=== PATIENT | female | born 1990 | race Caucasian/White ===

== ENCOUNTER 2018-07-27 08:15 | Outpatient (RCR) | payer MEDICARE, MEDICAID, SELFPAY ==
--- NOTE | 2018-06-18 16:41 | PT.OIE ---
Current Diagnoses Pain in right ankle and joints of right foot (06/18/18) Radiculopathy, lumbosacral region (06/18/18) Muscle weakness (generalized) (06/18/18) Unspecified subluxation of left patella, initial encounter (06/18/18) Other reduced mobility (06/18/18) Past Medical History (Last Reviewed 05/04/18 @ 10:34 by Jennifer Bradley LPN) Anxiety (Chronic ~1992) Depression (Chronic ~2008) Headache (Chronic) OCD (obsessive compulsive disorder) (Chronic ~1992) Seizure (Chronic) Vertigo (Chronic ~2006) Past Surgical History (Last Reviewed 05/04/18 @ 10:34 by Jennifer Bradley LPN) Anesthesia (Resolved) History of hand surgery (Resolved) History of lithotripsy Status post cholecystectomy Status post knee surgery Provider Visit Care Team Role Provider Type Joo Guthrie MD Attending Provider Physician Family Provider Primary Care Provider Specialty: Family Practice Address: [address] [place] [address] Email: [email or web address] Physical Therapy Initial Evaluation PT-OP-A Visit Information Start: 06/17/18 09:41 Freq: Status: Active Protocol: Document 06/18/18 09:04 LRN (Rec: 06/18/18 09:54 MARLONN [id number]) Out-Patient Physical Therapy Visit Information Visit Information Visit Type Initial Evaluation Visit Start Time 09:04 Visit Stop Time 09:56 Total Visit Minutes 52 Visit Number 1 Number of INSTRUMENTATION CONTROLS ENGINEER Visits 0 Evaluation Information Evaluation Date 06/18/18 PT-OP-B Current Condition Start: 06/17/18 09:41 Freq: Status: Active Protocol: Document 06/18/18 09:04 LRN (Rec: 06/18/18 09:54 LRN [id number]) Current Condition History of Current Condition Onset Date August 2017 Current Complaints Pain in superolateral L patella and pain in the L thigh with activity. History of Current Condition R ankle pain since down stairs and standing up on inverted ankle at age 18. Now, insidious onset of intermittent L knee pain that is also leads to L lateral thigh pain. Her pain is random with onset of sitting > 1 hour, sometimes walking she feels like her leg might give out. She states sometimes her L lateral thigh aches and touching it makes it hurt worse. Prior Treatments and Tests Prior treatments given to the R knee for similar condition of 2 surgeries with the last being a partial tendon release . Treatment Goals Patient/Caregiver Goals Pt goal is to be able to walk and stand without pain; walk and stand without fear of the L leg giving and causing her to fall. 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 Current Functional Impairments (Reported) Functional Limitations- ADL's Fear of L LE giving out with descending stairs. Functional Limitations- Mobility/Gait Running is difficult for fear the knees may give out. Functional Limitations- Work/School Pain in L thigh/knee randomly. Functional Limitations- Recreation/ Can't hike. Hobbies Personal Factors Other Personal Factors That May Effect Chronicity of condition. Therapy/Recovery Depression with 1 suicide attempt. Tourettes. Anxiety Disorder. Stress Seizure disorder. Obsessive Compulsive Disorder. Pt reported PTSD PT-OP-C Subjective Start: 06/17/18 09:41 Freq: Status: Active Protocol: Document 06/18/18 09:04 LRN (Rec: 06/18/18 15:56 LR [id number]) Patient Questionnaires Lower Extremity Functional Scale LEFS Score 62 LEFS Impairment 20 to 39% Impaired (Score 48- 62) OP-PT Pain Assessment Pain Assessment Grid Paper Pain Assessment Grid Completed Yes Location Left Lateral Thigh Intensity 5 Description Aching Description- Other Intolerable to touch Frequency Intermittent Pain Aggravating Factors Activity Other Pain Aggravating Factors Touch L lateral ankle Intensity 3 Scale Used Numeric (1 - 10) Description Aching Frequency Intermittent Pain Aggravating Factors Activity Other Pain Aggravating Factors Touch Patient Stated Pain Goal Activity without pain Pain Behaviors Pain Behaviors Facial Grimacing PT-OP-F Manual Assessment Start: 06/17/18 09:41 Freq: Status: Active Protocol: Document 06/18/18 09:04 LRN (Rec: 06/18/18 15:56 [email or web address] [id number]) Manual Assessments Soft Tissue Assessment Soft Tissue Mobility Assessment L hip and thigh: No significant soft tissue or muscle tightness as compared to the right. Increased Soft tissue tightness of the R lumbar paraspinals. Tenderness of T12 through L1 Transverse Processes. Joint Mobility Assessment Joint Mobility Assessment Sacrum: L ALA & R DINO is stuck in flexion. PT-OP-G Mobility & Gait Start: 06/17/18 09:41 Freq: Status: Active Protocol: Document 06/18/18 09:04 LRN (Rec: 06/18/18 15:56 LRN [id number]) OP Gait Assessment Gait Deviations General Gait Pattern Antalgic Comments Gait Comments Hits heavy with L LE. PT-OP-J Posture/Palpation/Skin Start: 06/17/18 09:41 Freq: Status: Active Protocol: Document 06/18/18 09:04 LRN (Rec: 06/18/18 15:56 LRN [id number]) Posture Evaluation Position Standing L-Spine Posture Rotation Right Increased Lordosis Pelvis Posture (R) PSIS Posterior Weight Distribution Weight Shifted Left Hip Posture (R) Externally Rotated Knee Posture (R) Genu Valgus Foot Arch (L) Low Arch (R) No Arch Comments Posture Comments Pt stands weight shifted on left. Pain in R side increases with equal weight bearing. Palpation Assessment Location Lumbar region Palpation Location L 3 Palpation Findings Tenderness PT-OP-K Range of Motion Start: 06/17/18 09:41 Freq: Status: Active Protocol: Document 06/18/18 09:04 LRN (Rec: 06/18/18 15:56 LRN [id number]) Lumbar Spine Range of Motion Lumbar Spine Active Degrees Flexion 60 Extension 20 Lateral Flexion Left 10 Lateral Flexion Right 20 ROM Limitations Pain Comments Trunk: Flex is with 35 deg's hip flexion. Ext is with 5 deg's hip extension. Pivot point is L5, Tender at L3. Ankle and Foot Goniometric Range of Motion Ankle and Foot Measured in Degrees Right Active Dorsiflexion with Knee Extended 0 Left Active Dorsiflexion with Knee Extended 0 PT-OP-L Special Tests Start: 06/17/18 09:41 Freq: Status: Active Protocol: Document 06/18/18 09:04 LRN (Rec: 06/18/18 15:56 LRN [id number]) Special Tests Lumbar Spine Special Tests Straight Leg Raise Test Results + bilaterally. Comments 50 deg's left, 60 deg's right. PT-OP-M Strength Start: 06/17/18 09:41 Freq: Status: Active Protocol: Document 06/18/18 09:04 LRN (Rec: 11/09/18 15:56 LRN [id number]) Trunk Strength Trunk Manual Muscle Testing Testing Position Supine Core Stabilization Poor. Pt unable to remain in neutral spine with leg lifts. PT-OP-Q Treatments Start: 06/17/18 09:41 Freq: Status: Active Protocol: Document 06/18/18 09:04 LRN (Rec: 06/18/18 15:56 LRN [id number]) Therapeutic Exercises Supine Exercises Hamstring/LE neural stretch Side left Gastrocnemius stretch Supine Exercise Name Passive stretch Side bilateral Manual Therapy Treatment Manual Traction Lumbar Details Traction with belt and pt self traction. Body Position Hooklying Self-Care/Home Management Treatment Education Patient Education Home Exercise Program Activities Self-Care/Home Management Activities Issued and reviewed HEP: Gastrocnemius and Soleus stretch; Hamstring/LE neural stretch. PT-OP-T Assessment and Plan Start: 06/17/18 09:41 Freq: Status: Active Protocol: Document 06/18/18 09:04 LRN (Rec: 06/18/18 09:54 LRN [id number]) Physical Therapy Assessment Rehab Potential Rehabilitation Potential Good Evaluation Complexity Number of Personal Factors/Comorbidities 3 or More Number of Body Systems Impaired 4 or More Clinical Presentation at Evaluation Evolving Impairments Impairments Activity Tolerance Gait Pain Posture ROM Soft Tissue Mobility Other Concerns Age Related Concerns Age: Effect of dysfunction on home/family/job. Barriers to Rehabilitation Co-morbidities. 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 Chonicity of condition. Goals Four Impairment Poor posture Short Term Goal (STG) Pt will be able to demonstrate proper sitting/standing posture with cuing. STG Duration 06/25/19. Three Impairment + PSLR with LBP Aerial Gunner Goal (LTG) Pt will be able to stand without onset of L or R lateral thigh or knee pain. Two Impairment Intermittent sudden onset of L knee/thigh pain. Aerial Gunner Goal (LTG) Pt will be able to walk without onset of pain LTG Duration 08/09/18. One Impairment Lacks appropriate self care HEP Correction Goal (LTG) Pt will be independent with a self care program to manage her pain and condition. LTG Duration 08/09/18. Assessment Summary Assessment Pt presents with + PSLR bilaterally, indicating possible neurological involvement. She appears to have LE radicular pain with repetitive trunk ROM and onset with L trunk SB. She gets resolution of her pain in supine with manual lumbar traction. She has soft tissue dysfunction in the lumbar, sacral and pelvic region and mechanical dysfunction of the sacrum (stuck in flexion at the L ALA and R DINO) and of the lumbar spine at L3 & L5. X-ray imaging of the lumbar region might be helpful to identify mechanical changes causing radicular pain. The pt demonstrates postural changes and poor posturing in sitting an standing. The pt will benefit from skilled physical therapy to improve her postural awareness, provide body mechanics training, teach proper back care with posturing and a HEP, and to improve her core/ pelvic stability and LE strength to prevent knee buckling and the pt's fear of falling. Physical Therapy Plan Frequency and Duration Frequency of Treatment 2x/Week Plan of Care Start Date 06/18/18 Plan of Care End Date 08/09/18 Therapeutic Interventions Therapeutic Interventions Gait Training Home Exercise Program Joint Mobilizations Manual Therapy Neuromuscular Re-education Patient/Caregiver Education Self-Care/Home Management Soft Tissue Mobilization Taping Therapeutic Activities Therapeutic Exercises Modalities Cold Pack/Ice Massage Electric Stimulation Hot Packs Traction- Mechanical Ultrasound Other Referrals/Consults Referrals/Consults Recommended Recommend X-rays and/or MRI of lumbar spine. Next Visit Focus/Plan Next Note Type Treatment Note Next Visit Plan Start with exercise for core stabilization during LE exercise, assess hip mobility, review HEP, add manual therapy to normalize lumbar and sacral positioning and manual lumbar traction (to start) to decrease pain, body mechanics training and progression of a Dynamic Lumbar Stabilization (DLS) program.
--- NOTE | 2018-06-18 16:42 | PT.OPPOC ---
Current Diagnoses Pain in right ankle and joints of right foot (06/18/18) Radiculopathy, lumbosacral region (06/18/18) Muscle weakness (generalized) (06/18/18) Unspecified subluxation of left patella, initial encounter (06/18/18) Other reduced mobility (06/18/18) Provider Visit Care Team Role Provider Type Joo Guthrie MD Attending Provider Physician Family Provider Primary Care Provider Specialty: Family Practice Address: [address] [place] [id number] Email: [email or web address] Plan Of Care PT-OP-T Assessment and Plan Start: 06/17/18 09:41 Freq: Status: Active Protocol: Document 06/18/18 09:04 LRN (Rec: 06/18/18 09:54 LRN [id number]) Physical Therapy Assessment Rehab Potential Rehabilitation Potential Good Evaluation Complexity Number of Personal Factors/Comorbidities 3 or More Number of Body Systems Impaired 4 or More Clinical Presentation at Evaluation Evolving Impairments Impairments Activity Tolerance Gait Pain Posture ROM Soft Tissue Mobility Other Concerns Age Related Concerns Age: Effect of dysfunction on home/family/job. Barriers to Rehabilitation Co-morbidities. 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 Chonicity of condition. Goals Four Impairment Poor posture Short Term Goal (STG) Pt will be able to demonstrate proper sitting/standing posture with cuing. STG Duration 06/25/19. Three Impairment + PSLR with LBP Group Home Goal (LTG) Pt will be able to stand without onset of L or R lateral thigh or knee pain. Two Impairment Intermittent sudden onset of L knee/thigh pain. Group Home Goal (LTG) Pt will be able to walk without onset of pain LTG Duration 08/09/18. One Impairment Lacks appropriate self care HEP Group Home Goal (LTG) Pt will be independent with a self care program to manage her pain and condition. LTG Duration 08/09/18. Assessment Summary Assessment Pt presents with + PSLR bilaterally, indicating possible neurological involvement. She appears to have LE radicular pain with repetitive trunk ROM and onset with L trunk SB. She gets resolution of her pain in supine with manual lumbar traction. She has soft tissue dysfunction in the lumbar, sacral and pelvic region and mechanical dysfunction of the sacrum (stuck in flexion at the L ALA and R DINO) and of the lumbar spine at L3 & L5. X-ray imaging of the lumbar region might be helpful to identify mechanical changes causing radicular pain. The pt demonstrates postural changes and poor posturing in sitting an standing. The pt will benefit from skilled physical therapy to improve her postural awareness, provide body mechanics training, teach proper back care with posturing and a HEP, and to improve her core/ pelvic stability and LE strength to prevent knee buckling and the pt's fear of falling. Physical Therapy Plan Frequency and Duration Frequency of Treatment 2x/Week Plan of Care Start Date 06/18/18 Plan of Care End Date 08/09/18 Therapeutic Interventions Therapeutic Interventions Gait Training Home Exercise Program Joint Mobilizations Manual Therapy Neuromuscular Re-education Patient/Caregiver Education Self-Care/Home Management Soft Tissue Mobilization Taping Therapeutic Activities Therapeutic Exercises Modalities Cold Pack/Ice Massage Electric Stimulation Hot Packs Traction- Mechanical Ultrasound Other Referrals/Consults Referrals/Consults Recommended Recommend X-rays and/or MRI of lumbar spine. Next Visit Focus/Plan Next Note Type Treatment Note Next Visit Plan Start with exercise for core stabilization during LE exercise, assess hip mobility, review HEP, add manual therapy to normalize lumbar and sacral positioning and manual lumbar traction (to start) to decrease pain, body mechanics training and progression of a Dynamic Lumbar Stabilization (DLS) program. Plan of Care Dates Plan of Care Start Date 06/18/18 Plan of Care End Date 08/09/18 Please Sign and Return: I have reviewed this Plan of Care and certify that the skilled therapy services above are required to meet the patient?s needs. Physician Signature Date Printed Name and Credentials Clinical Instructor Signature Printed Name and Credentials
--- NOTE | 2018-06-25 12:15 | PT.OTN ---
Current Diagnoses Pain in right ankle and joints of right foot (06/25/18) Unspecified subluxation of left patella, initial encounter (06/25/18) Physical Therapy Treatment Note PT-OP-A Visit Information Start: 06/17/18 09:41 Freq: Status: Active Protocol: Document 06/25/18 08:17 LRN (Rec: 06/25/18 09:03 LRN [id number]) Out-Patient Physical Therapy Visit Information Visit Information Visit Type Treatment Note Visit Start Time 08:17 Visit Stop Time 09:07 Total Visit Minutes 50 Visit Number 2 Number of HARBORMASTER Visits 0 Evaluation Information Evaluation Date 06/18/18 PT-OP-B Current Condition Start: 06/17/18 09:41 Freq: Status: Active Protocol: Document 06/18/18 09:04 LRN (Rec: 06/18/18 09:54 LRN [id number]) Current Condition History of Current Condition Onset Date August 2017 Current Complaints Pain in superolateral L patella and pain in the L thigh with activity. History of Current Condition R ankle pain since down stairs and standing up on inverted ankle at age 18. Now, insidious onset of intermittent L knee pain that is also leads to L lateral thigh pain. Her pain is random with onset of sitting > 1 hour, sometimes walking she feels like her leg might give out. She states sometimes her L lateral thigh aches and touching it makes it hurt worse. Prior Treatments and Tests Prior treatments given to the R knee for similar condition of 2 surgeries with the last being a partial tendon release . Treatment Goals Patient/Caregiver Goals Pt goal is to be able to walk and stand without pain; walk and stand without fear of the L leg giving and causing her to fall. 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 Current Functional Impairments (Reported) Functional Limitations- ADL's Fear of L LE giving out with descending stairs. Functional Limitations- Mobility/Gait Running is difficult for fear the knees may give out. Functional Limitations- Work/School Pain in L thigh/knee randomly. Functional Limitations- Recreation/ Can't hike. Hobbies Personal Factors Other Personal Factors That May Effect Chronicity of condition. Therapy/Recovery Depression with 1 suicide attempt. Tourettes. Anxiety Disorder. Stress Seizure disorder. Obsessive Compulsive Disorder. Pt reported PTSD PT-OP-C Subjective Start: 06/17/18 09:41 Freq: Status: Active Protocol: Document 06/25/18 08:17 LRN (Rec: 06/25/18 09:03 LRN [id number]) OP-PT Subjective Patient Comments Patient Comments R ankle hurts only if standing on it too long for 4-5 hours, and if turning and pivoting. Doing ex issued. PT-OP-F Manual Assessment Start: 06/17/18 09:41 Freq: Status: Active Protocol: Document 06/18/18 09:04 LRN (Rec: 06/18/18 15:56 LRN [id number]) Manual Assessments Soft Tissue Assessment Soft Tissue Mobility Assessment L hip and thigh: No significant soft tissue or muscle tightness as compared to the right. Increased Soft tissue tightness of the R lumbar paraspinals. Tenderness of T12 through L1 Transverse Processes. Joint Mobility Assessment Joint Mobility Assessment Sacrum: L ALA & R DINO is stuck in flexion. PT-OP-G Mobility & Gait Start: 06/17/18 09:41 Freq: Status: Active Protocol: Document 06/18/18 09:04 LRN (Rec: 06/18/18 15:56 LRN [id number]) OP Gait Assessment Gait Deviations General Gait Pattern Antalgic Comments Gait Comments Hits heavy with L LE. PT-OP-J Posture/Palpation/Skin Start: 06/17/18 09:41 Freq: Status: Active Protocol: Document 06/18/18 09:04 LRN (Rec: 06/18/18 15:56 LRN [id number]) Posture Evaluation Position Standing L-Spine Posture Rotation Right Increased Lordosis Pelvis Posture (R) PSIS Posterior Weight Distribution Weight Shifted Left Hip Posture (R) Externally Rotated Knee Posture (R) Genu Valgus Foot Arch (L) Low Arch (R) No Arch Comments Posture Comments Pt stands weight shifted on left. Pain in R side increases with equal weight bearing. Palpation Assessment Location Lumbar region Palpation Location L 3 Palpation Findings Tenderness PT-OP-K Range of Motion Start: 06/17/18 09:41 Freq: Status: Active Protocol: Document 06/18/18 09:04 LRN (Rec: 06/18/18 15:56 LRN [id number]) Lumbar Spine Range of Motion Lumbar Spine Active Degrees Flexion 60 Extension 20 Lateral Flexion Left 10 Lateral Flexion Right 20 ROM Limitations Pain Comments Trunk: Flex is with 35 deg's hip flexion. Ext is with 5 deg's hip extension. Pivot point is L5, Tender at L3. Ankle and Foot Goniometric Range of Motion Ankle and Foot Measured in Degrees Right Active Dorsiflexion with Knee Extended 0 Left Active Dorsiflexion with Knee Extended 0 PT-OP-L Special Tests Start: 06/17/18 09:41 Freq: Status: Active Protocol: Document 06/18/18 09:04 LRN (Rec: 06/18/18 15:56 LRN [id number]) Special Tests Lumbar Spine Special Tests Straight Leg Raise Test Results + bilaterally. Comments 50 deg's left, 60 deg's right. PT-OP-M Strength Start: 06/17/18 09:41 Freq: Status: Active Protocol: Document 06/25/18 08:17 LRN (Rec: 06/25/18 12:11 LRN [id number]) Ankle/Foot Strength Ankle and Foot Manual Muscle Testing Right Reason Not Measured WFL Comments Generally 5/5. PT-OP-Q Treatments Start: 06/17/18 09:41 Freq: Status: Active Protocol: Document 06/25/18 08:17 LRN (Rec: 06/25/18 09:03 LRN [id number]) Therapeutic Exercises Supine Exercises DLS Supine Exercise Name Neutral spine training & with Heels slides - singular Side bilateral Reps/Minutes 5' Hamstring/LE neural stretch Side bilateral Reps/Minutes 5' Comments L>R Gastrocnemius stretch Supine Exercise Name Passive stretch Side bilateral Reps/Minutes 3' Prone Exercises MAYURI Reps/Minutes 10x Sitting Exercises Ankle EV s Sitting Exercise Name Strengthening with T-Band Side right Equipment Used Lev 2 Reps/Minutes 10x2, 8x1 Comments Sore with last reps Manual Therapy Treatment Joint Mobilizations Thoracic Joint T4-T10 Direction Rotation Grade II Body Position Prone Reps/Duration 8' Sacrum Joint Moving into sacral extension & L rotation Grade III Body Position Prone Reps/Duration 4' Manual Traction Lumbar Details Traction with belt and pt self traction. Body Position Hooklying Self-Care/Home Management Treatment Education Patient Education Home Exercise Program Activities Self-Care/Home Management Activities Issued & reviewed HEP: Ankle EV with T-Band. I/S pt in MAYURI ex for HEP. PT-OP-R Modalities Start: 06/17/18 09:41 Freq: Status: Active Protocol: Document 06/25/18 08:17 LRN (Rec: 06/25/18 10:17 LRN [id number]) Hot Pack/Cold Pack Treatment Cold Pack Location Mid > Low back Patient Position Hooklying Treatment Duration (minutes) 10 Patient Tolerance Good PT-OP-T Assessment and Plan Start: 06/17/18 09:41 Freq: Status: Active Protocol: Document 06/25/18 08:17 LRN (Rec: 06/25/18 09:03 LRN [id number]) Physical Therapy Assessment Assessment Summary Assessment Pt was not having bilateral radicular pain this morning. Postural changes and core weakness are notable. She has soft tissue dysfunction in the lumbar, sacral and pelvic region and mechanical dysfunction of the sacrum ( stuck in flexion at the L ALA and R DINO) and of the lumbar spine at L3 & L5. The pt needs to improve her postural awareness, and needs body mechanics training, teaching of proper back care, HEP, and LE strength to prevent knee buckling and the pt's fear of falling. The R ankle is decreased in active EV/IV ~25% in sitting. Physical Therapy Plan Frequency and Duration Frequency of Treatment 2x/Week Plan of Care Start Date 06/18/18 Plan of Care End Date 08/09/18 Next Visit Focus/Plan Next Note Type Treatment Note Next Visit Plan Start with exercise for core stabilization during LE exercise, assess hip mobility, review HEP, add manual therapy to normalize lumbar and sacral positioning and manual lumbar traction (to start) to decrease pain, body mechanics training and progression of a Dynamic Lumbar Stabilization (DLS) program. Measure ankle IV/EV ROM and issue HEP of stretch ROM as needed.
--- NOTE | 2018-06-28 09:58 | PT.OTN ---
Current Diagnoses Pain in right ankle and joints of right foot (06/28/18) Unspecified subluxation of left patella, initial encounter (06/28/18) Physical Therapy Treatment Note PT-OP-A Visit Information Start: 06/17/18 09:41 Freq: Status: Active Protocol: Document 06/28/18 09:05 LRN (Rec: 06/28/18 09:55 LRN [id number]) Out-Patient Physical Therapy Visit Information Visit Information Visit Type Treatment Note Visit Start Time 09:05 Visit Stop Time 09:52 Total Visit Minutes 47 Visit Number 3 Number of CANDLEMAKING LABORER Visits 0 Evaluation Information Evaluation Date 06/18/18 PT-OP-B Current Condition Start: 06/17/18 09:41 Freq: Status: Active Protocol: Document 06/18/18 09:04 LRN (Rec: 06/18/18 09:54 LRN [id number]) Current Condition History of Current Condition Onset Date August 2017 Current Complaints Pain in superolateral L patella and pain in the L thigh with activity. History of Current Condition R ankle pain since down stairs and standing up on inverted ankle at age 18. Now, insidious onset of intermittent L knee pain that is also leads to L lateral thigh pain. Her pain is random with onset of sitting > 1 hour, sometimes walking she feels like her leg might give out. She states sometimes her L lateral thigh aches and touching it makes it hurt worse. Prior Treatments and Tests Prior treatments given to the R knee for similar condition of 2 surgeries with the last being a partial tendon release . Treatment Goals Patient/Caregiver Goals Pt goal is to be able to walk and stand without pain; walk and stand without fear of the L leg giving and causing her to fall. 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 Current Functional Impairments (Reported) Functional Limitations- ADL's Fear of L LE giving out with descending stairs. Functional Limitations- Mobility/Gait Running is difficult for fear the knees may give out. Functional Limitations- Work/School Pain in L thigh/knee randomly. Functional Limitations- Recreation/ Can't hike. Hobbies Personal Factors Other Personal Factors That May Effect Chronicity of condition. Therapy/Recovery Depression with 1 suicide attempt. Tourettes. Anxiety Disorder. Stress Seizure disorder. Obsessive Compulsive Disorder. Pt reported PTSD PT-OP-C Subjective Start: 06/17/18 09:41 Freq: Status: Active Protocol: Document 06/28/18 09:05 LRN (Rec: 06/28/18 09:55 LRN [id number]) OP-PT Subjective Patient Comments Patient Comments R knee hurt a lot on the lateral side. PT-OP-F Manual Assessment Start: 06/17/18 09:41 Freq: Status: Active Protocol: Document 06/18/18 09:04 LRN (Rec: 06/18/18 15:56 LRN [id number]) Manual Assessments Soft Tissue Assessment Soft Tissue Mobility Assessment L hip and thigh: No significant soft tissue or muscle tightness as compared to the right. Increased Soft tissue tightness of the R lumbar paraspinals. Tenderness of T12 through L1 Transverse Processes. Joint Mobility Assessment Joint Mobility Assessment Sacrum: L ALA & R DINO is stuck in flexion. PT-OP-G Mobility & Gait Start: 06/17/18 09:41 Freq: Status: Active Protocol: Document 06/18/18 09:04 LRN (Rec: 06/18/18 15:56 LRN [id number]) OP Gait Assessment Gait Deviations General Gait Pattern Antalgic Comments Gait Comments Hits heavy with L LE. PT-OP-J Posture/Palpation/Skin Start: 06/17/18 09:41 Freq: Status: Active Protocol: Document 06/18/18 09:04 LRN (Rec: 06/18/18 15:56 LRN [id number]) Posture Evaluation Position Standing L-Spine Posture Rotation Right Increased Lordosis Pelvis Posture (R) PSIS Posterior Weight Distribution Weight Shifted Left Hip Posture (R) Externally Rotated Knee Posture (R) Genu Valgus Foot Arch (L) Low Arch (R) No Arch Comments Posture Comments Pt stands weight shifted on left. Pain in R side increases with equal weight bearing. Palpation Assessment Location Lumbar region Palpation Location L 3 Palpation Findings Tenderness PT-OP-K Range of Motion Start: 06/17/18 09:41 Freq: Status: Active Protocol: Document 06/28/18 09:56 LRN (Rec: 06/28/18 09:58 LRN [id number]) Hip Goniometric Range of Motion Hip ROM Limitations Comments PSLR: L 35 deg's, R 45 ( measure with goniometer). Ankle and Foot Goniometric Range of Motion Ankle and Foot Measured in Degrees Right Active Inversion 18 Eversion 18 Left Active Inversion 25 Eversion 18 PT-OP-L Special Tests Start: 06/17/18 09:41 Freq: Status: Active Protocol: Document 06/18/18 09:04 LRN (Rec: 06/18/18 15:56 LRN [id number]) Special Tests Lumbar Spine Special Tests Straight Leg Raise Test Results + bilaterally. Comments 50 deg's left, 60 deg's right. PT-OP-M Strength Start: 06/17/18 09:41 Freq: Status: Active Protocol: Document 06/25/18 08:17 LRN (Rec: 06/25/18 12:11 LRN [id number]) Ankle/Foot Strength Ankle and Foot Manual Muscle Testing Right Reason Not Measured WFL Comments Generally 5/5. PT-OP-Q Treatments Start: 06/17/18 09:41 Freq: Status: Active Protocol: Document 06/28/18 09:05 LRN (Rec: 06/28/18 09:55 LRN [id number]) Cardio Equipment Bicycle (Upright) Duration (Minutes) 5 Resistance 3 Seat Position 3 Therapeutic Exercises Supine Exercises ROM Ankle Supine Exercise Name Ankle IV/EV Comments ROM taken DLS Supine Exercise Name Neutral spine training & with Heels slides - singular Side bilateral Reps/Minutes 5' Hamstring/LE neural stretch Side bilateral Reps/Minutes 5' Comments L>R. PSLR Self-Care/Home Management Treatment Education Patient Education Home Exercise Program Other Education Reviewed HEP and added pt to start postural training with use of wall. PT-OP-R Modalities Start: 06/17/18 09:41 Freq: Status: Active Protocol: Document 06/28/18 09:05 LRN (Rec: 06/28/18 09:55 LRN [id number]) Ultrasound Therapy Treatment R Lateral knee jt Treatment Duration (minutes) 8 Patient Position Supine Coupling Medium Ultrasound Gel Applicator Size (cm2) 2 Frequency Setting (mHz) 1 Mode Setting Continuous Intensity Setting (w/cm2) 1.0 PT-OP-T Assessment and Plan Start: 06/17/18 09:41 Freq: Status: Active Protocol: Document 06/28/18 09:05 LRN (Rec: 06/28/18 09:55 LRN [id number]) Physical Therapy Assessment Assessment Summary Assessment Pt not doing LE neural stretch correctly to start. Pt appears to have a fair understanding of proper standing posture, further training needed. Pt R lateral knee pain is partially LB related and possibly LCL inflammation related. Physical Therapy Plan Frequency and Duration Frequency of Treatment 2x/Week Plan of Care Start Date 06/18/18 Plan of Care End Date 08/09/18 Next Visit Focus/Plan Next Note Type Treatment Note Next Visit Plan Continue with posture training & exercise for core stabilization during LE exercise, assess hip mobility, review HEP, add manual therapy to normalize lumbar/ sacral posture, manual lumbar traction (to start) to decrease pain, body mechanics training and progression of a Dynamic Lumbar Stabilization (DLS) program. Measure ankle IV/EV ROM and issue HEP of stretch ROM as needed.
--- NOTE | 2018-07-05 15:41 | PT.OTN ---
Current Diagnoses Pain in right ankle and joints of right foot (07/05/18) Unspecified subluxation of left patella, initial encounter (07/05/18) Physical Therapy Treatment Note PT-OP-A Visit Information Start: 06/17/18 09:41 Freq: Status: Active Protocol: Document 07/05/18 08:17 LRN (Rec: 07/05/18 09:02 LRN [id number]) Out-Patient Physical Therapy Visit Information Visit Information Visit Type Treatment Note Visit Start Time 08:17 Visit Stop Time 09:02 Total Visit Minutes 45 Visit Number 4 Number of KNOTTER HAND Visits 0 Evaluation Information Evaluation Date 06/18/18 PT-OP-B Current Condition Start: 06/17/18 09:41 Freq: Status: Active Protocol: Document 06/18/18 09:04 LRN (Rec: 06/18/18 09:54 LRN [id number]) Current Condition History of Current Condition Onset Date August 2017 Current Complaints Pain in superolateral L patella and pain in the L thigh with activity. History of Current Condition R ankle pain since down stairs and standing up on inverted ankle at age 18. Now, insidious onset of intermittent L knee pain that is also leads to L lateral thigh pain. Her pain is random with onset of sitting > 1 hour, sometimes walking she feels like her leg might give out. She states sometimes her L lateral thigh aches and touching it makes it hurt worse. Prior Treatments and Tests Prior treatments given to the R knee for similar condition of 2 surgeries with the last being a partial tendon release . Treatment Goals Patient/Caregiver Goals Pt goal is to be able to walk and stand without pain; walk and stand without fear of the L leg giving and causing her to fall. 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 Current Functional Impairments (Reported) Functional Limitations- ADL's Fear of L LE giving out with descending stairs. Functional Limitations- Mobility/Gait Running is difficult for fear the knees may give out. Functional Limitations- Work/School Pain in L thigh/knee randomly. Functional Limitations- Recreation/ Can't hike. Hobbies Personal Factors Other Personal Factors That May Effect Chronicity of condition. Therapy/Recovery Depression with 1 suicide attempt. Tourettes. Anxiety Disorder. Stress Seizure disorder. Obsessive Compulsive Disorder. Pt reported PTSD PT-OP-C Subjective Start: 06/17/18 09:41 Freq: Status: Active Protocol: Document 07/05/18 08:17 LRN (Rec: 07/05/18 09:02 LRN [id number]) OP-PT Subjective Patient Comments Patient Comments States back has been okay. Hurts at work at the end of the day. States her ankle is okay, but the knee has hurt. R knee hurts when stretching. PT-OP-F Manual Assessment Start: 06/17/18 09:41 Freq: Status: Active Protocol: Document 06/18/18 09:04 LRN (Rec: 06/18/18 15:56 LRN [id number]) Manual Assessments Soft Tissue Assessment Soft Tissue Mobility Assessment L hip and thigh: No significant soft tissue or muscle tightness as compared to the right. Increased Soft tissue tightness of the R lumbar paraspinals. Tenderness of T12 through L1 Transverse Processes. Joint Mobility Assessment Joint Mobility Assessment Sacrum: L ALA & R DINO is stuck in flexion. PT-OP-G Mobility & Gait Start: 06/17/18 09:41 Freq: Status: Active Protocol: Document 06/18/18 09:04 LRN (Rec: 06/18/18 15:56 LRN [id number]) OP Gait Assessment Gait Deviations General Gait Pattern Antalgic Comments Gait Comments Hits heavy with L LE. PT-OP-J Posture/Palpation/Skin Start: 06/17/18 09:41 Freq: Status: Active Protocol: Document 06/18/18 09:04 LRN (Rec: 06/18/18 15:56 LRN [id number]) Posture Evaluation Position Standing L-Spine Posture Rotation Right Increased Lordosis Pelvis Posture (R) PSIS Posterior Weight Distribution Weight Shifted Left Hip Posture (R) Externally Rotated Knee Posture (R) Genu Valgus Foot Arch (L) Low Arch (R) No Arch Comments Posture Comments Pt stands weight shifted on left. Pain in R side increases with equal weight bearing. Palpation Assessment Location Lumbar region Palpation Location L 3 Palpation Findings Tenderness PT-OP-K Range of Motion Start: 06/17/18 09:41 Freq: Status: Active Protocol: Document 06/28/18 09:56 LRN (Rec: 06/28/18 09:58 LRN [id number]) Hip Goniometric Range of Motion Hip ROM Limitations Comments PSLR: L 35 deg's, R 45 ( measure with goniometer). Ankle and Foot Goniometric Range of Motion Ankle and Foot Measured in Degrees Right Active Inversion 18 Eversion 18 Left Active Inversion 25 Eversion 18 PT-OP-L Special Tests Start: 06/17/18 09:41 Freq: Status: Active Protocol: Document 06/18/18 09:04 LRN (Rec: 06/18/18 15:56 LRN [id number]) Special Tests Lumbar Spine Special Tests Straight Leg Raise Test Results + bilaterally. Comments 50 deg's left, 60 deg's right. PT-OP-M Strength Start: 06/17/18 09:41 Freq: Status: Active Protocol: Document 06/25/18 08:17 LRN (Rec: 06/25/18 12:11 LRN [id number]) Ankle/Foot Strength Ankle and Foot Manual Muscle Testing Right Reason Not Measured WFL Comments Generally 5/5. PT-OP-Q Treatments Start: 06/17/18 09:41 Freq: Status: Active Protocol: Document 07/05/18 08:17 LRN (Rec: 07/05/18 09:02 LRN [id number]) Cardio Equipment Bicycle (Upright) Duration (Minutes) 6 Resistance 3 Seat Position 3 Therapeutic Exercises Supine Exercises LTR Side bilateral Reps/Minutes 1' each Comments R>L ROM Ankle Supine Exercise Name Ankle EV Gastrocnemius stretch Supine Exercise Name Passive stretch, f/b active ankle DF Side bilateral Reps/Minutes 3' Sidelying Exercises TFL stretch Side right Reps/Minutes 1' each Sitting Exercises Ankle IV Side right Resistance L2 T-Band Reps/Minutes 1/2 of EV ex Ankle EV s Sitting Exercise Name Strengthening with T-Band Side right Equipment Used Lev 2 Reps/Minutes 15x2 Comments Stretch and strengthening Manual Therapy Treatment Soft Tissue Mobilization IT Band Body Location Right IT Band Mobilization Type Instrument Assisted Strumming Sustained Pressure Intensity/Depth Superficial Body Position L Sidelying R hip Body Location TFL, Upper Gluteals Intensity/Depth Superficial Body Position L sidelie Joint Mobilizations R Ankle Direction Eversion Body Position R sidelie Comments Prone for Heel IV Manual Traction Lumbar Details Traction with belt and pt self traction. Body Position Hooklying PT-OP-R Modalities Start: 06/17/18 09:41 Freq: Status: Active Protocol: Document 06/28/18 09:05 LRN (Rec: 06/28/18 09:55 LRN [id number]) Ultrasound Therapy Treatment R Lateral knee jt Treatment Duration (minutes) 8 Patient Position Supine Coupling Medium Ultrasound Gel Applicator Size (cm2) 2 Frequency Setting (mHz) 1 Mode Setting Continuous Intensity Setting (w/cm2) 1.0 PT-OP-T Assessment and Plan Start: 06/17/18 09:41 Freq: Status: Active Protocol: Document 07/05/18 08:17 LRN (Rec: 07/05/18 09:02 LRN [id number]) Physical Therapy Assessment Goals Four Impairment Poor posture Short Term Goal (STG) Pt will be able to demonstrate proper sitting/standing posture with cuing. STG Duration 06/25/19. Three Impairment + PSLR with LBP Saddle And Harness Maker Goal (LTG) Pt will be able to stand without onset of L or R lateral thigh or knee pain. Two Impairment Intermittent sudden onset of L knee/thigh pain. Saddle And Harness Maker Goal (LTG) Pt will be able to walk without onset of pain LTG Duration 08/09/18. One Impairment Lacks appropriate self care HEP Saddle And Harness Maker Goal (LTG) Pt will be independent with a self care program to manage her pain and condition. LTG Duration 08/09/18. Assessment Summary Assessment Pt R ankle is stiff for EV. She has many active TrP's in her IT Band with dec in pain after STM to TFL & IT band. Pt chosing to ice at home. R ankle AROM is less than L. Physical Therapy Plan Frequency and Duration Frequency of Treatment 2x/Week Plan of Care Start Date 06/18/18 Plan of Care End Date 08/09/18 Next Visit Focus/Plan Next Note Type Treatment Note Next Visit Plan Continue with posture training & exercise for core stabilization during LE exercise, assess hip mobility, review HEP, add manual therapy to normalize lumbar/ sacral posture, manual lumbar traction (to start) to decrease pain, body mechanics training and progression of a Dynamic Lumbar Stabilization (DLS) program. Issue HEP of stretch ankle and hip ROM as needed.
--- NOTE | 2018-07-09 15:53 | PT.OTN ---
Current Diagnoses Pain in right ankle and joints of right foot (07/09/18) Unspecified subluxation of left patella, initial encounter (07/09/18) Physical Therapy Treatment Note PT-OP-A Visit Information Start: 06/17/18 09:41 Freq: Status: Active Protocol: Document 07/09/18 08:15 LRN (Rec: 07/09/18 09:01 LRN [id number]) Out-Patient Physical Therapy Visit Information Visit Information Visit Type Treatment Note Visit Start Time 08:15 Visit Stop Time 09:05 Total Visit Minutes 50 Visit Number 5 Number of AGENT TICKETING GATE Visits 0 Evaluation Information Evaluation Date 06/18/18 PT-OP-B Current Condition Start: 06/17/18 09:41 Freq: Status: Active Protocol: Document 06/18/18 09:04 LRN (Rec: 06/18/18 09:54 LRN [id number]) Current Condition History of Current Condition Onset Date August 2017 Current Complaints Pain in superolateral L patella and pain in the L thigh with activity. History of Current Condition R ankle pain since down stairs and standing up on inverted ankle at age 18. Now, insidious onset of intermittent L knee pain that is also leads to L lateral thigh pain. Her pain is random with onset of sitting > 1 hour, sometimes walking she feels like her leg might give out. She states sometimes her L lateral thigh aches and touching it makes it hurt worse. Prior Treatments and Tests Prior treatments given to the R knee for similar condition of 2 surgeries with the last being a partial tendon release . Treatment Goals Patient/Caregiver Goals Pt goal is to be able to walk and stand without pain; walk and stand without fear of the L leg giving and causing her to fall. 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 Current Functional Impairments (Reported) Functional Limitations- ADL's Fear of L LE giving out with descending stairs. Functional Limitations- Mobility/Gait Running is difficult for fear the knees may give out. Functional Limitations- Work/School Pain in L thigh/knee randomly. Functional Limitations- Recreation/ Can't hike. Hobbies Personal Factors Other Personal Factors That May Effect Chronicity of condition. Therapy/Recovery Depression with 1 suicide attempt. Tourettes. Anxiety Disorder. Stress Seizure disorder. Obsessive Compulsive Disorder. Pt reported PTSD PT-OP-C Subjective Start: 06/17/18 09:41 Freq: Status: Active Protocol: Document 07/09/18 08:15 LRN (Rec: 07/09/18 09:01 LRN [id number]) OP-PT Subjective Patient Comments Patient Comments Back only hurts (strains) when standing straight. She leans with standing so the back and leg starts to hurt. PT-OP-F Manual Assessment Start: 06/17/18 09:41 Freq: Status: Active Protocol: Document 06/18/18 09:04 LRN (Rec: 06/18/18 15:56 LRN [id number]) Manual Assessments Soft Tissue Assessment Soft Tissue Mobility Assessment L hip and thigh: No significant soft tissue or muscle tightness as compared to the right. Increased Soft tissue tightness of the R lumbar paraspinals. Tenderness of T12 through L1 Transverse Processes. Joint Mobility Assessment Joint Mobility Assessment Sacrum: L ALA & R DINO is stuck in flexion. PT-OP-G Mobility & Gait Start: 06/17/18 09:41 Freq: Status: Active Protocol: Document 06/18/18 09:04 LRN (Rec: 06/18/18 15:56 LRN [id number]) OP Gait Assessment Gait Deviations General Gait Pattern Antalgic Comments Gait Comments Hits heavy with L LE. PT-OP-J Posture/Palpation/Skin Start: 06/17/18 09:41 Freq: Status: Active Protocol: Document 06/18/18 09:04 LRN (Rec: 06/18/18 15:56 LRN [id number]) Posture Evaluation Position Standing L-Spine Posture Rotation Right Increased Lordosis Pelvis Posture (R) PSIS Posterior Weight Distribution Weight Shifted Left Hip Posture (R) Externally Rotated Knee Posture (R) Genu Valgus Foot Arch (L) Low Arch (R) No Arch Comments Posture Comments Pt stands weight shifted on left. Pain in R side increases with equal weight bearing. Palpation Assessment Location Lumbar region Palpation Location L 3 Palpation Findings Tenderness PT-OP-K Range of Motion Start: 06/17/18 09:41 Freq: Status: Active Protocol: Document 07/09/18 08:15 LRN (Rec: 07/09/18 09:01 LRN [id number]) Hip Goniometric Range of Motion Hip ROM Limitations Comments PSLR: L 40 deg's, R 50 ( measure with goniometer). PT-OP-L Special Tests Start: 06/17/18 09:41 Freq: Status: Active Protocol: Document 06/18/18 09:04 LRN (Rec: 06/18/18 15:56 LRN [id number]) Special Tests Lumbar Spine Special Tests Straight Leg Raise Test Results + bilaterally. Comments 50 deg's left, 60 deg's right. PT-OP-M Strength Start: 06/17/18 09:41 Freq: Status: Active Protocol: Document 06/25/18 08:17 LRN (Rec: 06/25/18 12:11 LRN [id number]) Ankle/Foot Strength Ankle and Foot Manual Muscle Testing Right Reason Not Measured WFL Comments Generally 5/5. PT-OP-Q Treatments Start: 06/17/18 09:41 Freq: Status: Active Protocol: Document 07/09/18 08:15 LRN (Rec: 07/09/18 09:01 LRN [id number]) Cardio Equipment Bicycle (Upright) Duration (Minutes) 6 Resistance 3 Seat Position 3 Therapeutic Exercises Supine Exercises LTR Side bilateral Reps/Minutes 1' each Comments R>L ROM Ankle Supine Exercise Name Ankle EV Comments LATEX ALLERGY? DLS Supine Exercise Name Heel slides Reps/Minutes 10x 2 each Hamstring/LE neural stretch Side bilateral Reps/Minutes 5' Comments L>R. PSLR Gastrocnemius stretch Supine Exercise Name Passive stretch, f/b active ankle DF Side bilateral Equipment Used ABDIAZIZ Reps/Minutes 3' Sitting Exercises Ankle IV Side right Resistance L2 T-Band Reps/Minutes 1/2 of EV ex Comments LATEX ALLERGY? Ankle EV s Sitting Exercise Name Strengthening with T-Band Side right Equipment Used Lev 2 Reps/Minutes 15x2 Comments LATEX ALLERGY? Stretch and strengthening Manual Therapy Treatment Joint Mobilizations R Ankle Direction Eversion Body Position R sidelie Comments Prone for Heel IV Sacrum Joint Moving into sacral extension Grade III Body Position Prone Reps/Duration 4' Manual Traction Lumbar Details Traction with belt and pt self traction. Body Position Hooklying Self-Care/Home Management Treatment Education Patient Education Home Exercise Program Activities Self-Care/Home Management Activities Issued and reviewed HEP: Trunk isometric with lateral step outs to the R and small trunk R rotation movements; DLS exs: Pelvic brace, Heel slides, October. PT-OP-R Modalities Start: 06/17/18 09:41 Freq: Status: Active Protocol: Document 06/28/18 09:05 LRN (Rec: 06/28/18 09:55 LRN [id number]) Ultrasound Therapy Treatment R Lateral knee jt Treatment Duration (minutes) 8 Patient Position Supine Coupling Medium Ultrasound Gel Applicator Size (cm2) 2 Frequency Setting (mHz) 1 Mode Setting Continuous Intensity Setting (w/cm2) 1.0 PT-OP-T Assessment and Plan Start: 06/17/18 09:41 Freq: Status: Active Protocol: Document 07/09/18 08:15 LRN (Rec: 07/09/18 09:01 LRN [id number]) Physical Therapy Assessment Goals Two Impairment Intermittent sudden onset of L knee/thigh pain. Senior Care Goal (LTG) Pt will be able to walk without onset of pain LTG Duration 08/09/18. 07/09/18 GOAL MET: 2 weeks w/o pain Assessment Summary Assessment Pt showed good core stability with heel slides. Weakness with R trunk rotators with marching and decreased core stability. Physical Therapy Plan Frequency and Duration Frequency of Treatment 2x/Week Plan of Care Start Date 06/18/18 Plan of Care End Date 08/09/18 Next Visit Focus/Plan Next Note Type Treatment Note Next Visit Plan Issue latex free T-Band. Continue with posture training & exercise for core stabilization during LE exercise, assess hip mobility, review HEP, add manual therapy to normalize lumbar/ sacral posture, manual lumbar traction (to start) to decrease pain, body mechanics training and progression of a Dynamic Lumbar Stabilization (DLS) program. Issue HEP of stretch ankle and hip ROM as needed.
--- NOTE | 2018-07-27 15:31 | PT.OTN ---
Current Diagnoses Pain in right ankle and joints of right foot (07/27/18) Unspecified subluxation of left patella, initial encounter (07/27/18) Physical Therapy Treatment Note PT-OP-A Visit Information Start: 06/17/18 09:41 Freq: Status: Active Protocol: Document 07/27/18 08:16 LRN (Rec: 07/27/18 09:02 LRN [id number]) Out-Patient Physical Therapy Visit Information Visit Information Visit Type Treatment Note Visit Start Time 08:16 Visit Stop Time 09:06 Total Visit Minutes 50 Visit Number 8 Number of NEEDLE GRADER Visits 0 Evaluation Information Evaluation Date 06/18/18 PT-OP-B Current Condition Start: 06/17/18 09:41 Freq: Status: Active Protocol: Document 06/18/18 09:04 LRN (Rec: 06/18/18 09:54 LRN [id number]) Current Condition History of Current Condition Onset Date August 2017 Current Complaints Pain in superolateral L patella and pain in the L thigh with activity. History of Current Condition R ankle pain since down stairs and standing up on inverted ankle at age 18. Now, insidious onset of intermittent L knee pain that is also leads to L lateral thigh pain. Her pain is random with onset of sitting > 1 hour, sometimes walking she feels like her leg might give out. She states sometimes her L lateral thigh aches and touching it makes it hurt worse. Prior Treatments and Tests Prior treatments given to the R knee for similar condition of 2 surgeries with the last being a partial tendon release . Treatment Goals Patient/Caregiver Goals Pt goal is to be able to walk and stand without pain; walk and stand without fear of the L leg giving and causing her to fall. 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 Current Functional Impairments (Reported) Functional Limitations- ADL's Fear of L LE giving out with descending stairs. Functional Limitations- Mobility/Gait Running is difficult for fear the knees may give out. Functional Limitations- Work/School Pain in L thigh/knee randomly. Functional Limitations- Recreation/ Can't hike. Hobbies Personal Factors Other Personal Factors That May Effect Chronicity of condition. Therapy/Recovery Depression with 1 suicide attempt. Tourettes. Anxiety Disorder. Stress Seizure disorder. Obsessive Compulsive Disorder. Pt reported PTSD PT-OP-C Subjective Start: 06/17/18 09:41 Freq: Status: Active Protocol: Document 07/19/18 08:15 LRN (Rec: 07/19/18 09:01 LRN [id number]) OP-PT Subjective Patient Comments Patient Comments States after sitting Cross legged and doing her ex's she had pain in the L knee lateral side that radiated under the knee cap. Back hurts with work. PT-OP-F Manual Assessment Start: 06/17/18 09:41 Freq: Status: Active Protocol: Document 06/18/18 09:04 LRN (Rec: 06/18/18 15:56 LRN [id number]) Manual Assessments Soft Tissue Assessment Soft Tissue Mobility Assessment L hip and thigh: No significant soft tissue or muscle tightness as compared to the right. Increased Soft tissue tightness of the R lumbar paraspinals. Tenderness of T12 through L1 Transverse Processes. Joint Mobility Assessment Joint Mobility Assessment Sacrum: L ALA & R DINO is stuck in flexion. PT-OP-G Mobility & Gait Start: 06/17/18 09:41 Freq: Status: Active Protocol: Document 06/18/18 09:04 LRN (Rec: 06/18/18 15:56 LRN [id number]) OP Gait Assessment Gait Deviations General Gait Pattern Antalgic Comments Gait Comments Hits heavy with L LE. PT-OP-J Posture/Palpation/Skin Start: 06/17/18 09:41 Freq: Status: Active Protocol: Document 06/18/18 09:04 LRN (Rec: 06/18/18 15:56 LRN [id number]) Posture Evaluation Position Standing L-Spine Posture Rotation Right Increased Lordosis Pelvis Posture (R) PSIS Posterior Weight Distribution Weight Shifted Left Hip Posture (R) Externally Rotated Knee Posture (R) Genu Valgus Foot Arch (L) Low Arch (R) No Arch Comments Posture Comments Pt stands weight shifted on left. Pain in R side increases with equal weight bearing. Palpation Assessment Location Lumbar region Palpation Location L 3 Palpation Findings Tenderness PT-OP-K Range of Motion Start: 06/17/18 09:41 Freq: Status: Active Protocol: Document 07/09/18 08:15 LRN (Rec: 07/09/18 09:01 LRN [id number]) Hip Goniometric Range of Motion Hip ROM Limitations Comments PSLR: L 40 deg's, R 50 ( measure with goniometer). PT-OP-L Special Tests Start: 06/17/18 09:41 Freq: Status: Active Protocol: Document 06/18/18 09:04 LRN (Rec: 06/18/18 15:56 LRN [id number]) Special Tests Lumbar Spine Special Tests Straight Leg Raise Test Results + bilaterally. Comments 50 deg's left, 60 deg's right. PT-OP-M Strength Start: 06/17/18 09:41 Freq: Status: Active Protocol: Document 06/25/18 08:17 LRN (Rec: 06/25/18 12:11 LRN [id number]) Ankle/Foot Strength Ankle and Foot Manual Muscle Testing Right Reason Not Measured WFL Comments Generally 5/5. PT-OP-Q Treatments Start: 06/17/18 09:41 Freq: Status: Active Protocol: Document 07/27/18 08:16 LRN (Rec: 07/27/18 09:02 LRN [id number]) Cardio Equipment Bicycle (Upright) Duration (Minutes) 10 Resistance 3 Seat Position 3 Gym Equipment Shuttle Recovery Bilateral Squats Resistance 62 Shuttle Recovery Platform Stable Reps/Time 15 x 1 Shuttle Balance Balance Details EO: Standing and with squats Reps/Duration 3 Comments Pt not feeling safe with squat and refusing. Therapeutic Exercises Supine Exercises Hamstring/LE neural stretch Side bilateral Reps/Minutes 5' Comments L>R. PSLR Gastrocnemius stretch Supine Exercise Name Passive stretch, f/b active ankle DF Side bilateral Equipment Used ABDIAZIZ Reps/Minutes 3' Comments In standing Sitting Exercises Hamstring Strengthening Side bilateral Resistance L 2 T-Band Equipment Used LATEX FREE T-Band Reps/Minutes 15x Quad Strengthening Sitting Exercise Name Knee ext Side bilateral Resistance 5#, L 2 T-Band Equipment Used LATEX FREE T-Band Reps/Minutes 8x2 Standing Exercises Shallow Squat Side bilateral Equipment Used Parallel Bars Reps/Minutes 3' Comments Stopped when pt felt L knee pain Ankle DF/PF strengthening Side bilateral Reps/Minutes 15 Forward Punch Side bilateral Reps/Minutes 15x2 Comments Cuing for proper back posturing. Scapular retraction Side bilateral Reps/Minutes 15x3 Comments Alternating feet position IR> neutral>IR Alternate arm pull backs Reps/Minutes 10 Comments DC'd due to L shoulder pain from prior dislocation PT-OP-R Modalities Start: 06/17/18 09:41 Freq: Status: Active Protocol: Document 07/27/18 08:16 LRN (Rec: 07/27/18 09:02 LRN [id number]) Hot Pack/Cold Pack Treatment Cold Pack Location Low back Patient Position Hooklying Treatment Duration (minutes) 10 Patient Tolerance Good Comments Extra layering given PT-OP-T Assessment and Plan Start: 06/17/18 09:41 Freq: Status: Active Protocol: Document 07/27/18 08:16 LRN (Rec: 07/27/18 09:02 LRN [id number]) Physical Therapy Assessment Goals Four Impairment Poor posture Short Term Goal (STG) Pt will be able to demonstrate proper sitting/standing posture with cuing. STG Duration 06/25/19. (07/27/18: GOAL MET ) Three Impairment + PSLR with LBP Bolter Helper Goal (LTG) Pt will be able to stand without onset of L or R lateral thigh or knee pain. (: Having pain 1-2x/ day in standing, has had painfree day x 1.) Two Impairment Intermittent sudden onset of L knee/thigh pain. Bolter Helper Goal (LTG) Pt will be able to walk without onset of pain LTG Duration 08/09/18. 07/20/18 GOAL MET One Impairment Lacks appropriate self care HEP Senior Care Goal (LTG) Pt will be independent with a self care program to manage her pain and condition. LTG Duration 08/09/18. Assessment Summary Assessment Pt flexes knees with posterior pelvic tilt. No R ankle pain complaints, L knee unstable. Physical Therapy Plan Frequency and Duration Frequency of Treatment 2x/Week Plan of Care Start Date 06/18/18 Plan of Care End Date 08/09/18 Next Visit Focus/Plan Next Note Type Progress Note Next Visit Plan Progress note with new POC. Strengthen L knee for instability and with core stabilization, check body mechanics for work related causes of knee pain.
--- NOTE | 2018-08-26 08:53 | PT.OPDS ---
Current Diagnoses Pain in right ankle and joints of right foot (07/27/18) Unspecified subluxation of left patella, initial encounter (07/27/18) Provider Visit Care Team Role Provider Type Joo Guthrie MD Attending Provider Physician Family Provider Primary Care Provider Specialty: Family Practice Address: [address] [place] [address], [id number] Email: [email or web address] Visit Number Visit Number 8 Discharge Summary PT-OP-B Current Condition Start: 06/17/18 09:41 Freq: Status: Active Protocol: Document 06/18/18 09:04 LRN (Rec: 06/18/18 09:54 LRN [id number]) Current Condition History of Current Condition Onset Date August 2017 Current Complaints Pain in superolateral L patella and pain in the L thigh with activity. History of Current Condition R ankle pain since down stairs and standing up on inverted ankle at age 18. Now, insidious onset of intermittent L knee pain that is also leads to L lateral thigh pain. Her pain is random with onset of sitting > 1 hour, sometimes walking she feels like her leg might give out. She states sometimes her L lateral thigh aches and touching it makes it hurt worse. Prior Treatments and Tests Prior treatments given to the R knee for similar condition of 2 surgeries with the last being a partial tendon release . Treatment Goals Patient/Caregiver Goals Pt goal is to be able to walk and stand without pain; walk and stand without fear of the L leg giving and causing her to fall. 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 Current Functional Impairments (Reported) Functional Limitations- ADL's Fear of L LE giving out with descending stairs. Functional Limitations- Mobility/Gait Running is difficult for fear the knees may give out. Functional Limitations- Work/School Pain in L thigh/knee randomly. Functional Limitations- Recreation/ Can't hike. Hobbies Personal Factors Other Personal Factors That May Effect Chronicity of condition. Therapy/Recovery Depression with 1 suicide attempt. Tourettes. Anxiety Disorder. Stress Seizure disorder. Obsessive Compulsive Disorder. Pt reported PTSD PT-OP-T Assessment and Plan Start: 06/17/18 09:41 Freq: Status: Active Protocol: Document 08/26/18 08:53 LRN (Rec: 08/26/18 09:02 LRN [id number]) Physical Therapy Assessment Goals Four Impairment Poor posture Short Term Goal (STG) Pt will be able to demonstrate proper sitting/standing posture with cuing. STG Duration 06/25/19. (07/27/18: GOAL MET ) Three Impairment + PSLR with LBP Gas Engineer Goal (LTG) Pt will be able to stand without onset of L or R lateral thigh or knee pain. (: Having pain 1-2x/ day in standing, has had painfree day x 1.) Two Impairment Intermittent sudden onset of L knee/thigh pain. Gas Engineer Goal (LTG) Pt will be able to walk without onset of pain LTG Duration 08/09/18. 07/20/18 GOAL MET One Impairment Lacks appropriate self care HEP Gas Engineer Goal (LTG) Pt will be independent with a self care program to manage her pain and condition. LTG Duration 08/09/18. Progress Towards Goals Progress Comments Goal #4 Met, pt demonstrated and verbalized good postural awareness. Goal #2 Met, pt was walking without pain complaints. Goal #3 Partially Met, pt was having intermittent leg pain with standing. Goal #1 Partially Met, pt did not complete her physical therapy rehab to obtain an independent self care program. She had been given home ex's for self management as she progressed in her rehab. Assessment Summary Assessment The pt had been seen for 8 physical therapy visits with the last one on 07/27/19. She has failed to attend the last 5 visits. Attempts to reach her by phone were unsuccessful ; therefore the pt will be discharged from therapy due to lack of attendance. The pt was unavailable for final assessment. Goals 2 & 4 were previously met. Physical Therapy Plan Discharge Physical Therapy Discharge Reasons No Longer Attending PT Discharge Comments Unable to reach patient by phone, DC due to lack of attendance. Pt was unavailable for final assessment.
== END 2018-09-02 16:18 ==
LOC: PHYS 08:15
PROVIDERS: Family Provider Family Medicine; PCP Family Medicine; Visit Provider Family Medicine
DX: M25.571 Pain in right ankle and joints of right foot (principal); S83.002A Unspecified subluxation of left patella, initial encounter
CPT/HCPCS: 97010; 97035; 97110; 97112; 97140; 97162; 97535